=== PATIENT | male | born 1990 | race African-American/Black ===

== ENCOUNTER 2018-02-17 21:15 | Inpatient (IN) | payer OTHER ==
--- NOTE | 2018-02-17 22:04 | RAD ---
PORTABLE AP CHEST X-RAY 02/17/18 HISTORY: Witnessed seizure. Patient fell from standing position. Hit head on wooden platform. COMPARISON: None available. FINDINGS: The cardiac silhouette and pulmonary vasculature are within normal limits. The lungs are clear. The v isualized osseous structures appear intact. IMPRESSION: No acute cardiopulmonary process. POS: [facility]
[2018-02-17] MEDS ORDERED: Adacel (T-DAP) 0.5 ML VIAL ONE (22:21)
[2018-02-17 22:22] LABS: #Lymphocytes 1.7 thou/uL (1.20-3.40); #Monocytes 0.4 thou/uL (0.11-0.59); #Neutrophils 8.3 thou/uL (1.40-6.50); %Basophils 0.3 % (0.0-1.0); %Eosinophils 0.3 % (0.0-10.0); %Lymphocytes 16.2 % (21.0-51.0); %Monocytes 3.7 % (0.0-10.0); %Neutrophils 79.5 % (42.0-75.0); Hemoglobin 15.3 g/dL (14.0-18.0); Mean Corpuscular HGB CONC 33.6 g/dL (32.0-36.0); Mean Platelet Volume 7.4 fL (7.4-10.4); Platelet Count 304 thou/uL (130-400); RBC Distribution Width 11.8 % (11.5-14.5); Red Blood Cell (RBC) Count 4.51 mill/uL (4.70-6.10); White Blood Cell (WBC) Count 10.5 thou/uL (4.8-10.8)
--- NOTE | 2018-02-17 22:41 | CT ---
NONCONTRAST CT FACIAL BONES: 02/17/18 HISTORY: Witnessed seizure. Patient fell from standing at time of seizure. Hit head on wooden platform. FINDINGS: There is no evidence of a fracture involving the facial bones. Temporomandibular joints are within no rmal limits. There is scattered mild mucosal thickening seen throughout the paranasal sinuses. The orbits are normal and symmetric in appearance bilaterally. IMPRESSION: 1. No evidence of a fracture involving the facial bones. 2. Rowe sinus disease. POS: [facility]
[2018-02-17 22:45] LABS: ALT (SGPT) 16 U/L (8-55); AST (SGOT) 30 U/L (5-34); Acetaminophen Less than 6.0 mcg/mL (10.0-30.0); Albumin 4.9 g/dL (3.5-5.0); Alcohol Less than 10 mg/dL (Less than 10); Alkaline Phosphatase 67 U/L (40-150); Anion Gap 19 mmol/L (10-20); BUN (Urea Nitrogen) 12 mg/dL (8.9-20.6); Bilirubin, Total 0.5 mg/dL (0.2-1.2); CKMB 5.6 ng/mL (0-6.6); Calc. Creatinine Clearance 0 mL/min (70-130); Calcium 10.5 mg/dL (7.8-10.44); Carbon Dioxide 21 mmol/L (22-29); Chloride 105 mmol/L (98-107); Estimated GFR-MDRD 82; Globulin 3.2 g/dL (2.4-3.5); Glucose 137 mg/dL (70-105); Magnesium 2.9 mg/dL (1.6-2.6); Potassium 4.3 mmol/L (3.5-5.1); Protein, Total 8.1 g/dL (6.0-8.3); Salicylate Less than 8.0 mg/dL (15.0-30.0); Sodium 141 mmol/L (136-145); Troponin I Less than 0.010 ng/mL (< 0.028)
--- NOTE | 2018-02-17 22:52 | CT ---
NONCONTRAST CT CERVICAL SPINE: 02/17/18 HISTORY: Witnessed seizure. Patient fell from standing position and hit head on wooden platform. TECHNIQUE: Contiguous axial CT images are obtained through the cervical spine from the skull base to the T1-2 le dominic. Sagittal and coronal reformat images are provided. FINDINGS: There is a small osseous density seen adjacent to the tip of the odontoid. However, this appears darrin icated and has a convex margin in relation to the adjacent odontoid and it does not appear to represe nt an acute fracture involving the tip of the odontoid. This may be related to either a remote injury or degenerative in origin. The vertebral body heights are within normal limits. No acute fracture or subluxation is seen involving the cervical spine. The prevertebral soft tissues are within normal limits. The visualized lung apices are clear aside fr om minimal right apical pleural and parenchymal scarring. IMPRESSION: No acute fracture or subluxation involving the cervical spine. POS: [facility]
--- NOTE | 2018-02-17 23:09 | CT ---
NONCONTRAST CT HEAD: 02/17/18 HISTORY: Witnessed seizure. Patient fell from standing and hit head on a wooden platform. Injury after fall. COMPARISON: None available. FINDINGS: There is a low density focus seen within the right frontal lobe acosta radiata. There is no evidence of an acute cortical infarction, hemorrhage, mass effect, or midline shift. The ventricular system is normal in size, shape, and position. There is mild mucosal thickening in each maxillary antrum and a few ethmoidal air cells. The mastoid air cells are clear. The calvarial structures are intact withou t evidence of a fracture. IMPRESSION: 1. Low density focus measuring approximately 10 mm x 2.3 mm in axial dimensions within the right frontal lobe centrum semiovale. This could potentially represent an ischemic insult although the pat ient is young in age. Other etiologies and lesions are a possibility. If the patient has known prior CT scans of the head, this would be helpful for direct correlation, otherwise MRI of brain is suggest ed for further evaluation. 2. No hemorrhage or acute cortical infarction is seen. 3. Mild sinus disease. POS: [facility]
[2018-02-17] MEDS ORDERED: levETIRAcetam 500 MG TAB PO SCH (23:30)
[2018-02-17 23:44] LABS: Bilirubin Negative (Negative); Blood, Urine Trace (Negative); Clarity CLEAR (Clear); Glucose, Urine (Dipstick) Negative (Negative); Leukocyte Negative (Negative); Nitrite Negative (Negative); Protein, Urine (Dipstick) 100 mg/dL (Neg-Trace); Specific Gravity, Urine 1.019 (1.002-1.036); Urobilinogen 0.2 mg/dL (0.2-1.0)
[2018-02-17 23:47] LABS: Bacteria/HPF None Seen HPF (None Seen); Hyaline Casts/LPF 0-3 HYALINE CAST LPF (0-3 Hyaline); Squamous Epithelial 0-3 HPF (0-3); WBC/HPF 0-3 HPF (0-3)
[2018-02-18 00:03] LABS: Amphetamine Not Detected (NotDetected); Barbiturates Screen Not Detected (NotDetected); Benzodiazepine Screen Detected (NotDetected); Cocaine Metabolite Screen Not Detected (NotDetected); Medtox Control Line Valid? VALID (VALID); Medtox Reader # READER 1; Methadone Not Detected (NotDetected); Methamphetamine Not Detected (NotDetected); Opiate Screen Not Detected (NotDetected); Oxycodone Screen Not Detected (NotDetected); Phencyclidine (PCP) Not Detected (NotDetected); THC/Cannabinoid Screen Detected (NotDetected); Tricyclic Screen Not Detected (NotDetected)
[2018-02-18 00:08] LABS: Renal Epithelial None Seen HPF (0-3); Transitional Epithelial NONE SEEN HPF (0-3)
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
[2018-02-18 03:19] VITALS: BMI 17.5
--- NOTE | 2018-02-18 05:37 | PDOC.FM ---
- Subjective Subjective: Pt did well overnight. One episode yesterday of feeling hot, then vomiting copious brown fluid, small blood clot in vomit (less than size of dilma, per nurse). One episode of HR increasing to 130s, patient asymptomatic. Pt pain is controlled. - Objective Vital Signs & Weight: Vital Signs (12 hours) Temp Pulse Resp BP Pulse Ox 02/18/18 04:00 98.5 F 63 18 134/67 98 02/18/18 03:27 98.4 F 87 16 127/66 95 02/18/18 01:27 98.5 F 74 14 113/59 L 98 Weight Weight 53.8 kg Result Diagrams: 02/17/18 21:50 02/17/18 21:50 <Glenna Amaral - Last Filed: 02/18/18 07:49> - Objective Vital Signs & Weight: Vital Signs (12 hours) Temp Pulse Resp BP Pulse Ox 02/18/18 08:00 98.7 F 63 16 112/63 100 02/18/18 07:50 98.0 F 56 L 14 02/18/18 06:00 98.0 F 56 L 14 135/69 99 02/18/18 05:00 98.0 F 78 18 124/57 L 98 02/18/18 04:00 98.5 F 63 18 134/67 98 02/18/18 03:27 98.4 F 87 16 127/66 95 02/18/18 01:27 98.5 F 74 14 113/59 L 98 Weight Weight 53.8 kg I&O: 02/17/18 02/18/18 02/19/18 06:59 06:59 06:59 Intake Total 480 Output Total 240 Balance 240 Result Diagrams: 02/17/18 21:50 02/17/18 21:50 <Jigar Tse - Last Filed: 02/18/18 11:00> Phys Exam - Physical Examination Constitutional: NAD HEENT: PERRLA Dry MM Neck: no nodes Respiratory: no wheezing, no rales, no rhonchi, clear to auscultation bilateral Cardiovascular: RRR, no significant murmur, no rub Gastrointestinal: soft, non-tender, no distention, positive bowel sounds Musculoskeletal: no edema, pulses present muscle wasting in LUE and LLE Neurological: moves all 4 limbs 4/5 weakness on backup operator strength LUE, 4/5 plantar flexion LLE Lymphatic: no nodes Psychiatric: normal affect, A&O x 3 Skin: no rash <Glenna Amaral - Last Filed: 02/18/18 07:49> Dx/Plan (1) Hemiparesis Code(s): G81.90 - HEMIPLEGIA, UNSPECIFIED AFFECTING UNSPECIFIED SIDE Status: Chronic (2) Poly-drug misuser Code(s): F19.10 - OTHER PSYCHOACTIVE SUBSTANCE ABUSE, UNCOMPLICATED Status: Acute (3) Seizure-like activity Code(s): R56.9 - UNSPECIFIED CONVULSIONS Status: Acute - Plan Plan: 27 yo M with new onset seizure 1. New onset seizure Continue Keppra BID continue to monitor on stroke unit this is the first seizure he has ever had and could possibly be explained by smoking marijuana laced with something not picked up by drug screen Ativan PRN for seizure CT: rt frontal lobe, low density focus 10x2.3 mm, possible ischemic insult -obtain release of records from [place] to compare MRI ordered Consider Neuro consult after MRI obtained Prolactin 31.8, CK and lactate pending 2. Polysubstance abuse UDS positive for benzos and marijuana 3. Hx of TBI with residual hemiplegia Continue to monitor; stable at this time per patient Diet: Advance as tolerated Code status: full code JASMEET Aguilar <Glenna Amaral - Last Filed: 02/18/18 07:49> (1) Seizure-like activity Code(s): R56.9 - UNSPECIFIED CONVULSIONS Status: Acute (2) Hemiparesis Code(s): G81.90 - HEMIPLEGIA, UNSPECIFIED AFFECTING UNSPECIFIED SIDE Status: Chronic (3) Poly-drug misuser Code(s): F19.10 - OTHER PSYCHOACTIVE SUBSTANCE ABUSE, UNCOMPLICATED Status: Acute <Jigar Tse R - Last Filed: 02/18/18 11:00> Attending Addendum - Attending Addendum Date/Time: 02/18/18 5754 I personally evaluated the patient and discussed the management with Dr. Amaral. I agree with the History, Examination, Assessment and Plan documented above with any addition or exceptions noted below. Patient stable overnight. MRI and Neurology consult today. History of TBI and will work to obtain old records relating to this. Doing well and has no complaints. <Jigar Tse - Last Filed: 02/18/18 11:00>
[2018-02-18] MEDS ORDERED: Ondansetron ODT 4 MG TAB PO PRN (06:59)
[2018-02-18] MEDS ORDERED: Lorazepam 2 MG/ML VIAL SLOW IVP PRN (07:00)
[2018-02-18 08:11] LABS: Lactic Acid 0.8 mmol/L (0.5-2.2)
[2018-02-18] MEDS: levETIRAcetam 500 MG TAB PO SCH ×2 (09:04→22:27)
[2018-02-18] MEDS: Lactated Ringer's 1,000 ML IV SCH ×2 (12:02→22:27)
--- NOTE | 2018-02-18 14:02 | MRI ---
MRI BRAIN WITH AND WITHOUT IV CONTRAST: HISTORY: New-onset seizures. Abnormalities seen on CT scan of previous day. FINDINGS: No restricted diffusion is seen. There is a focal area of gliosis in the right frontal lobe centrum semiovale. No postcontrast enhancement is identified. The ventricular size is normal and the basila r cisterns are patent. No evidence of acute infarct, hemorrhage, mass, midline shift, or abnormal ex traaxial fluid collections is seen. No abnormal postcontrast enhancement is identified. There is muc osal disease in the paranasal sinuses and fluid in the mastoid air cells. IMPRESSION: 1. No evidence of acute intracranial process or mass. 2. Findings in the right frontal robe are likely due to old insult (could be in utero). A followup exam is recommended in 6 months. This study was interpreted in consultation with Dr. Robson Stern who concurs. POS: [facility]
[2018-02-18] MEDS ORDERED: Atorvastatin Calcium 10 MG TAB PO SCH (21:00)
[2018-02-19] MEDS: Sodium Chloride 0.9% 1,000 ML IV SCH ×2 (01:52→09:19)
[2018-02-19] MEDS: Lactated Ringer's 1,000 ML IV SCH (03:45)
--- NOTE | 2018-02-19 06:08 | PDOC.FM ---
- Subjective Subjective: 27 yo M admitted for new onset seizure. Did well overnight, no complaints. Slight headache this morning. - Objective Vital Signs & Weight: Vital Signs (12 hours) Temp Pulse Resp BP Pulse Ox 02/19/18 03:06 98.6 F 52 L 16 121/64 99 02/19/18 00:00 98.7 F 71 16 122/63 98 02/18/18 19:55 98.7 F 71 16 100 02/18/18 19:44 98.5 F 50 L 16 134/63 100 Weight Admit Weight 53.8 kg Weight 53.8 kg I&O: 02/17/18 02/18/18 02/19/18 06:59 06:59 06:59 Intake Total 480 Output Total 240 Balance 240 Result Diagrams: 02/17/18 21:50 02/17/18 21:50 Radiology: MRI brain: findings in rt frontal lobe are likely due to old insult, recommends follow up in 6 months <Glenna Ward - Last Filed: 02/19/18 07:41> - Objective Vital Signs & Weight: Vital Signs (12 hours) Temp Pulse Resp BP Pulse Ox 02/19/18 08:00 98.4 F 62 16 02/19/18 07:38 98.4 F 62 16 132/68 100 02/19/18 03:06 98.6 F 52 L 16 121/64 99 02/19/18 00:00 98.7 F 71 16 122/63 98 Weight Admit Weight 53.8 kg Weight 53.8 kg I&O: 02/18/18 02/19/18 02/20/18 06:59 06:59 06:59 Intake Total 480 Output Total 240 Balance 240 Result Diagrams: 02/17/18 21:50 02/17/18 21:50 <Jigar Tse - Last Filed: 02/19/18 10:38> Phys Exam - Physical Examination Constitutional: NAD HEENT: PERRLA, moist MMs Hematoma on Rt forehead Neck: no nodes Respiratory: no wheezing, no rales, no rhonchi Cardiovascular: RRR Gastrointestinal: soft, non-tender, no distention Musculoskeletal: no edema, pulses present weakness on LUE and LLE, unchanged Neurological: moves all 4 limbs Lymphatic: no nodes Psychiatric: normal affect, A&O x 3 Skin: no rash, normal turgor <Glenna Ward - Last Filed: 02/19/18 07:41> Dx/Plan (1) Hemiparesis Code(s): G81.90 - HEMIPLEGIA, UNSPECIFIED AFFECTING UNSPECIFIED SIDE Status: Chronic (2) Poly-drug misuser Code(s): F19.10 - OTHER PSYCHOACTIVE SUBSTANCE ABUSE, UNCOMPLICATED Status: Acute (3) Seizure-like activity Code(s): R56.9 - UNSPECIFIED CONVULSIONS Status: Acute (4) Elevated CK Status: Acute - Plan Plan: 27 yo M with new onset seizures 1. New onset seizure Continue Keppra BID continue to monitor on stroke unit this is the first seizure he has ever had and could possibly be explained by smoking marijuana laced with something not picked up by drug screen Ativan PRN for seizure CT: rt frontal lobe, low density focus 10x2.3 mm, possible ischemic insult -obtain release of records from [place] to compare MRI : changes in Rt frontal lobe likely due to old insult, recommended f/up MRI in 6 mos Prolactin 31.8, Lactate .8 Consult Neuro today 2. Polysubstance abuse UDS positive for benzos and marijuana 3. Hx of TBI with residual hemiplegia Continue to monitor; stable at this time per patient 4. Elevated CK - CK 917, started on MIVF LR @ 100, switched to NS @ 100 due to LR shortage - CK down to 621, continue MIVF Diet: Advance as tolerated Code status: full code Mariama ward, PGY1 <Glenna Ward - Last Filed: 02/19/18 07:41> (1) Seizure-like activity Code(s): R56.9 - UNSPECIFIED CONVULSIONS Status: Acute (2) Hemiparesis Code(s): G81.90 - HEMIPLEGIA, UNSPECIFIED AFFECTING UNSPECIFIED SIDE Status: Chronic (3) Poly-drug misuser Code(s): F19.10 - OTHER PSYCHOACTIVE SUBSTANCE ABUSE, UNCOMPLICATED Status: Acute <Jigar Tse - Last Filed: 02/19/18 10:38> Attending Addendum - Attending Addendum Date/Time: 02/19/18 1037 I personally evaluated the patient and discussed the management with Dr. Ward. I agree with the History, Examination, Assessment and Plan documented above with any addition or exceptions noted below. Patient doing well. No further seizure activity and has been started on Keppra. CK downtrending. Will follow up with Neurology outpatient. Stable for discharge home today. MRI showed no acute findings. <Jiagr Tse - Last Filed: 02/19/18 10:38>
[2018-02-19] MEDS: levETIRAcetam 500 MG TAB PO SCH (09:19)
[2018-02-19 11:38] VITALS: BP 136/72; TEMP 98
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
--- NOTE | 2018-02-21 04:49 | DIS-2 ---
DATE OF ADMISSION: 02/18/2018 DATE OF DISCHARGE: 02/19/2018 RESIDENT: Glenna Amaral M.D. ADMITTING ATTENDING: Jigar Tse M.D. DISCHARGE ATTENDING: Jigar Tse M.D. CONSULTATIONS: None. PROCEDURES: 1. On 02/17/2018, cervical spine CT. Impression: No acute fracture or subluxation involving the cervical spine. 2. On 02/17/2018, brain CT. Impression: Low density focus measuring approximately 10 mm x 2.3 mm in axial dimensions in the right frontal lobe centrum semiovale. This could potentially represent an ischemic insult, although the patient is young in age. Other etiologies and lesions are possibility. This patient has known prior CT scans of head, this to be helpful for direct correlation. No hemorrhage or acute cortical infarction. Mild sinus disease. 3. On 02/17/2018, facial bone CT. Impression: No evidence of fracture involving the facial bones; orr sinus disease. 4. On 02/17/2018, chest x-ray, no acute cardiopulmonary process. 5. On 02/18/2018, brain MRI. Impression: No evidence of acute intracranial process or mass. Findings in the right frontal lobe are likely due to old insult. Followup exam recommended in 6 months. PRIMARY DIAGNOSIS: New onset seizures. SECONDARY DIAGNOSES: Polysubstance abuse, history of traumatic brain injury with residual hemiplegia, elevated CK. DISCHARGE MEDICATIONS: Keppra 500 b.i.d. DISCONTINUED MEDICATIONS: None. HISTORY OF PRESENT ILLNESS AND HOSPITAL COURSE: Mr. Walden presented to the ED after witnessed seizure at around 2000 hours on 02/18/2018. He reported no changes in the past week, he had been feeling like himself. He did not remember the event and had some amnesia and headache afterward. Witnesses reported whole body jerking type of motions, and that he struck his head on a railroad tie. It is unclear if he had the seizure before or after the fall. He denied any change in focal weakness, chest pain, trouble with vision, disequilibrium or postictal type symptoms. He reported a minor headache. In the ED, he got a chest x-ray, UA, UDS (positive), prolactin (high). Mag (high) , CBC, EKG and a CT of the head were also done. During his stay, he rreceived a cervical spine CT, brain CT, facial bone CT, chest x-ray and a brain MRI. Old lesions were seen on his head CT in the right frontal lobe that were confirmed to be old with the brain MRI. He was started on 500 mg of Keppra b.i.d. On his MRI report, it was recommended that he consider having a followup MRI in 6 months. For his polysubstance abuse, his urine drug screen was positive for benzos and marijuana. For history of TBI with residual hemiplegia, he was found to have some residual weakness still in the left arm and the left leg, per patient, it was stable. He also was found to have elevated CK of 917. He was started on maintenance IV fluids of lactated Ringer's, which was switched to normal saline. His CK trended down to 621. The patient was discharged and was to follow up with primary care physician in the next week and Dr. Arrington stated he could follow up in his clinic, although his next available opening may not be until around April. DISPOSITION: Stable. DISCHARGE INSTRUCTIONS: 1. Location: Home. 2. Diet: Regular. 3. Activity: No driving for the next 6 months. 4. Followup: Follow up with primary care physician within the next week and follow up with Neurologist, Dr. Arrington. DOTTIE
== END 2018-02-19 12:51 | disposition home or self-care (01) | DRG 101 ==
LOC: ERS 21:15 → 2SE 02-18 01:37
PROVIDERS: ADMIT Student in an Organized Health Care Education/Training Program; ATTEND Student in an Organized Health Care Education/Training Program
DX: R56.9 Unspecified convulsions (principal); G81.90 Hemiplegia, unspecified affecting unspecified side; S09.90XA Unspecified injury of head, initial encounter; S02.5XXA Fracture of tooth (traumatic), initial encounter for closed fracture; S00.81XA Abrasion of other part of head, initial encounter; F12.10 Cannabis abuse, uncomplicated; F17.210 Nicotine dependence, cigarettes, uncomplicated; W19.XXXA Unspecified fall, initial encounter; Y92.9 Unspecified place or not applicable; Z87.820 Personal history of traumatic brain injury
CPT/HCPCS: 36415; 70450; 70486; 70553; 71045; 72125; 80053; 80306; 80307; 81003; 81015; 82550; 82553; 83605; 83735; 84146; 84484; 85025; 90471; 90715; 93005; 94760; 96360

== ENCOUNTER 2020-01-03 03:36 | Emergency (ER) | payer OTHER ==
--- NOTE | 2020-01-03 07:41 | RAD ---
Exam: Chest one view HISTORY:Altered mental status. Comparison: 02/17/2018 FINDINGS: Cardiac silhouette: Normal Aorta: Unremarkable Pulmonary vessels: Normal Costophrenic angles: Clear LUNGS: No masses or consolidation. Pneumothorax: None Osseous abnormalities: None IMPRESSION: No acute cardiopulmonary process.
== END 2020-01-03 04:39 | disposition home or self-care (01) ==
LOC: ERS 03:36
DX: R55 Syncope and collapse (principal); F12.10 Cannabis abuse, uncomplicated; R41.82 Altered mental status, unspecified; F17.210 Nicotine dependence, cigarettes, uncomplicated
CPT/HCPCS: 71045; 93005